=== PATIENT | male | born 1995 | race African-American/Black ===

== ENCOUNTER 2019-11-14 17:15 | Emergency (ER) | payer MEDICARE, MEDICAID ==
[~2019-11-14] VITALS: Ht 175.3 cm; Wt 70.5 kg
[2019-11-14] MEDS ORDERED: LIDOCAINE 1% 10 ML VIAL INJ ONE (18:00)
[2019-11-14] MEDS ORDERED: DARU1TAB3 PO (18:09)
[2019-11-14 19:15] VITALS: BP 118/76
== END 2019-11-14 19:20 | disposition home or self-care (01) ==
LOC: EMS 17:20
DX: S01.511A Laceration without foreign body of lip, initial encounter (principal); S01.81XA Laceration without foreign body of other part of head, initial encounter; W19.XXXA Unspecified fall, initial encounter; Y93.89 Activity, other specified; Y92.89 Other specified places as the place of occurrence of the external cause; Y99.8 Other external cause status
CPT/HCPCS: 12013; 93005; 99283; J3490; 12015

== ENCOUNTER 2019-11-20 20:04 | Emergency (ER) | payer MEDICARE, MEDICAID ==
[~2019-11-20] VITALS: Ht 175.3 cm; Wt 72.3 kg
[~2019-11-20 20:04] MED LIST: DARU1TAB3 PO
[2019-11-20 20:37] VITALS: BP 112/63
== END 2019-11-20 20:37 | disposition home or self-care (01) ==
LOC: EMS 20:04
DX: S01.511D Laceration without foreign body of lip, subsequent encounter (principal); F17.210 Nicotine dependence, cigarettes, uncomplicated; Z79.899 Other long term (current) drug therapy; X58.XXXD Exposure to other specified factors, subsequent encounter
CPT/HCPCS: Z7502